=== PATIENT | female | born 1995 | race African-American/Black ===

== ENCOUNTER 2017-01-26 16:51 | Emergency (ER) | payer OTHER ==
[2017-01-26 17:16] VITALS: BP 116/81; PULSE 102; TEMP 100.7; BMI 49.2
[2017-01-26] MEDS ORDERED: IBUPROFEN 600 MG TABLET (FP) PO ONE (18:14)
[2017-01-26] MEDS ORDERED: IBUPROFEN 400 MG TABLET (FP) PO ONE (18:16)
--- NOTE | 2017-01-26 18:17 | PDOC ---
History of Present Illness - General Stated Complaint: LIGHTHEADED/SORE THROAT Time Seen by Provider: 01/26/17 17:50 History Source: Patient Exam Limitations: No Limitations - History of Present Illness Initial Comments: 01/26/17 18:14 21 yr obese female smoker, no PMHX states one day sore throat, headache and ear pain no fever no vomiting. 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 Severity: reports: mild Associated Symptoms: reports: facial pain Past History - Past Medical History Allergies/Adverse Reactions: Allergies Allergy/AdvReac Type Severity Reaction Status Date / Time No Known Allergies Allergy Verified 01/26/17 17:16 Home Medications: Ambulatory Orders Cephalexin Monohydrate [Keflex -] 500 mg PO BID #20 capsule 12/09/15 Nystatin Cream [Mycostatin Cream -] 1 applic TP BID #60 applic 12/09/15 Penicillin V Potassium [Pen Vee K -] 500 mg PO BID #20 tablet 01/26/17 Asthma: No Cancer: No Cardiac Disorders: No Diabetes: No HTN: No Seizures: No Thyroid Disease: No - Psycho/Social/Smoking Cessation Hx Anxiety: No Suicidal Ideation: No Smoking History: Current every day smoker Have you smoked in the past 12 months: Yes Number of Cigarettes Smoked Daily: 5 Information on smoking cessation initiated: No Hx Alcohol Use: No Drug/Substance Use Hx: Yes (MARIJUANA) Substance Use Type: None Hx Substance Use Treatment: No Respiratory Specific PMHX - Complaint Specific PMHX Angina: No Bronchitis: No Pneumonia: No Pulmonary Embolus: No TB (Tuberculosis): No Review of Systems - Review of Systems Able to Perform ROS?: Yes Is the patient limited Spanish proficient: No Constitutional: Yes: Symptoms Reported HEENTM: Yes: Symptoms Reported *Physical Exam - Vital Signs Last Vital Signs Temp Pulse Resp BP Pulse Ox 100.7 F H 102 H 20 116/81 96 01/26/17 17:12 01/26/17 17:12 01/26/17 17:12 01/26/17 17:12 01/26/17 17:12 - Physical Exam General Appearance: Yes: Nourished, Appropriately Dressed HEENT: positive: EOMI, KAUSHAL, Pharynx Normal, Pharyngeal Erythema, Tonsillar Erythema Neck: positive: Lymphadenopathy (R), Lymphadenopathy (L). negative: Tender Respiratory/Chest: positive: Lungs Clear, Normal Breath Sounds Cardiovascular: positive: Regular Rhythm, Regular Rate Gastrointestinal/Abdominal: positive: Normal Bowel Sounds, Soft Musculoskeletal: positive: Normal Inspection Extremity: positive: Normal Capillary Refill, Normal Inspection, Normal Range of Motion Integumentary: positive: Normal Color, Dry, Warm Neurologic: positive: Fully Oriented, Alert, Normal Mood/Affect, Normal Response , Motor Strength 01/12 Medical Decision Making - Medical Decision Making 01/26/17 18:16 cc: fever, sore throat ear pain for one day will check for strep motrin for pain now pt is non toxic able to eat and drink 01/26/17 18:56 positive strep throat will treat with pencililin for 10 days . *DC/Admit/Observation/Transfer Diagnosis at time of Disposition: Strep throat - Discharge Dispostion Disposition: HOME Condition at time of disposition: Good - Prescriptions Prescriptions: Penicillin V Potassium [Pen Vee K -] 500 mg PO BID #20 tablet - Referrals Referrals: Valentino Gann MD [Staff Physician] - - Patient Instructions Additional Instructions: gargle with warm salt water 4-5 times a day take the Pen VK as directed for 10 days take motrin 600mg every 6hrs for pain as needed follow with the ENT doctor if any symptoms worsen or persist
== END 2017-01-26 19:26 | disposition home or self-care (01) ==
LOC: JERFT 16:51
DX: J02.0 Streptococcal pharyngitis (principal); B95.0 Streptococcus, group A, as the cause of diseases classified elsewhere; F17.210 Nicotine dependence, cigarettes, uncomplicated
CPT/HCPCS: 87070; 87077; 87430; 99281-25